=== PATIENT | male | born 1990 | race African-American/Black ===

== ENCOUNTER 2020-08-21 05:43 | Emergency (ER) | payer SELFPAY ==
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
[2020-08-21 05:49] VITALS: BP 102/62; PULSE 63; RESP 16; TEMP 36.3; O2SAT 98
--- NOTE | 2020-08-21 06:19 | ED.GENADULT ---
HPI - General Adult General Chief complaint: Unspecified <Christian Ocampo MD - Last Filed: 08/23/20 19:39> Stated complaint: L jaw pain <Christian Ocampo MD - Last Filed: 08/23/20 19:39> Time Seen by Provider: 08/21/20 06:19 <Christian Ocampo MD - Last Filed: 08/23/20 19:39> History of Present Illness HPI narrative: pain and swelling at the left angle of the mandible since yesterday. Worsening in size and seveirty. No reporting pain as 02/27. He denies any dental pain. He notes that he did have otalgia and presumed ear infection on the left a few days earlier. No fever, chills, sore throat. <Christian Ocampo MD - Last Filed: 08/23/20 19:39> Related Data Allergies/adverse reactions: Allergies Allergy/AdvReac Type Severity Reaction Status Date / Time No Known Allergies Allergy Verified 08/21/20 07:11 <Christian Ocampo MD - Last Filed: 08/23/20 19:39> Review of Systems Review of Systems: All systems reviewed & are unremarkable except as noted in HPI and below <Christian Ocampo MD - Last Filed: 08/23/20 19:39> Constitutional: Constitutional: Denies chills and Denies fever(s) <Christian Ocampo MD - Last Filed: 08/23/20 19:39> Eyes: Eyes: Reports no additional eye complaints <Christian Ocampo MD - Last Filed: 08/23/20 19:39> ENT: Reports as per HPI <Christian Ocampo MD - Last Filed: 08/23/20 19:39> Cardiovascular: Cardiovascular: Reports no additional cardiovascular complaints <Christian Ocampo MD - Last Filed: 08/23/20 19:39> Respiratory: Respiratory: Reports no additional respiratory complaints <Christian Ocampo MD - Last Filed: 08/23/20 19:39> Gastrointestinal: Gastrointestinal: Reports no additional gastrointestinal complaints <Christian Ocampo MD - Last Filed: 08/23/20 19:39> [facility] Social History Social History: Social History (Updated 08/21/20 @ 08:13 by Christian Ocampo MD) Substance use: never <Christian Ocampo MD - Last Filed: 08/23/20 19:39> Exam Const: General: healthy appearing and no acute distress <Christian Ocampo MD - Last Filed: 08/23/20 19:39> HENMT: Other: swelling and tenderness over the left parotid gland. moderate decay of molars on top left. No significnat erythema of gums. <Christian Ocampo MD - Last Filed: 08/23/20 19:39> Eyes: Pupils: Equal, round and reactive pupils present <Christian Ocampo MD - Last Filed: 08/23/20 19:39> Neck: Neck: normal visual inspection <Christian Ocampo MD - Last Filed: 08/23/20 19:39> Lymphatic: lymphadenopathy (left anterior ) <Christian Ocampo MD - Last Filed: 08/23/20 19:39> Chest: Chest palpation & inspection: normal inspection of the chest <Christian Ocampo MD - Last Filed: 08/23/20 19:39> Resp: Effort & Inspection: normal respiratory effort <Christian Ocampo MD - Last Filed: 08/23/20 19:39> Auscultation: clear to auscultation bilaterally <Christian Ocampo MD - Last Filed: 08/23/20 19:39> Cardio: Rate: regular rate <Christian Ocampo MD - Last Filed: 08/23/20 19:39> Rhythm: regular rhythm <Christian Ocampo MD - Last Filed: 08/23/20 19:39> Skin: General skin exam: normal color <Christian Ocampo MD - Last Filed: 08/23/20 19:39> Neuro: General: patient oriented x3, gait normal, moves all extremities, no focal motor deficits and CN's II-XI intact bilaterally <Christian Ocampo MD - Last Filed: 08/23/20 19:39> Cognition (Neuro): normal cognition <Christian Ocampo MD - Last Filed: 08/23/20 19:39> Speech: normal speech <Christian Ocampo MD - Last Filed: 08/23/20 19:39> Course Course Emergency Course: i assumed care of this pt at shift change , i have seen this pt and reexamined him,no definitive abscess, advised him to take antibiotic as prescribed. <Iván Madsen MD - Last Filed: 08/21/20 09:00> Vital Signs Vital signs: Vital Signs Temperature 36.3 C L 08/21/20 05:49 Pulse Rate 63
[2020-08-21] MEDS: MORPHINE SULFATE (*CRX) 2 MG/ML INJ IV PUSH (06:46)
[2020-08-21 07:03] LABS: Basophils Percent Auto 0.6 % (0.2-1.2); Eosinophils Absolute Auto 0.1 K/mm3 (0-0.3); Eosinophils Percent Auto 1.6 % (0-4.4); Hematocrit 44.2 % (42.0-52.0); Hemoglobin 15.6 g/dL (14.0-18.0); Immature Granulocyte Absolute 0.03 K/mm3 (0.00-0.031); Immature Granulocyte Percent A 0.4 % (0-0.5); Lymphocytes Absolute Auto 2.04 K/mm3 (0.9-3.2); Lymphocytes Percent Auto 29.8 % (18.3-44.2); Mean Corpuscular HGB Conc 35.3 g/dl (32-36); Mean Corpuscular Hemoglobin 32.6 pg (26-34); Mean Corpuscular Volume 92.5 fl (80-100); Mean Platelet Volume 10.4 fl (7.4-10.4); Monocytes Absolute Auto 0.9 K/mm3 (0.1-0.6); Monocytes Percent Auto 12.9 % (2.6-8.5); Neutrophils Absolute Auto 3.7 K/mm3 (1.3-6.7); Neutrophils Percent Auto 54.7 % (45.5-73.1); Platelet Count Result 146 k/mm3 (150-375); Red Blood Count 4.78 M/mm3 (4.6-6.20); Red Cell Distribution Width 12.3 % (11.5-14.5); White Blood Count 6.8 K/mm3 (4.5-10.0)
--- NOTE | 2020-08-21 07:10 | PC.NURSE ---
assumed care of patient, allergies and pharmacy information obtained at this time.
[2020-08-21 07:13] LABS: Anion Gap 6 mmol/L (8-16); Blood Urea Nitrogen 10 mg/dL (9-20); Calcium 9.3 mg/dL (8.4-10.2); Carbon Dioxide 32 mmol/L (22-30); Chloride 103 mmol/L (98-107); Estimated CRCL calculation 86 ml/min; Estimated Glomerular Filt Rate > 60; Glucose 103 mg/dL (75-110); Potassium 3.8 mmol/L (3.4-5.0); Sodium 141 mmol/L (137-145)
[2020-08-21] MEDS: AMPICILLIN SULB 3 GM/NS 100 ML 3 GM/100 ML VIAL IVPB (07:23)
[2020-08-21 09:16] VITALS: BP 103/79; PULSE 69; O2SAT 100
== END 2020-08-21 09:17 | disposition home or self-care (01) ==
PROVIDERS: Emergency Medicine; Emergency Provider Family Medicine
DX: K11.21 Acute sialoadenitis (principal)
CPT/HCPCS: 36415; 70487; 80048; 85025; 96365; 96367; 96375; 99284; J0131; J0295; J2270; Q9967

== ENCOUNTER 2020-10-02 00:30 | Emergency (ER) | payer SELFPAY ==
[2020-10-02 00:34] VITALS: BP 102/59; PULSE 70; RESP 19; TEMP 36.9; O2SAT 97
--- NOTE | 2020-10-02 03:04 | ED.GENADULT ---
HPI - General Adult General Chief complaint: Dental/Oral Stated complaint: swollen jaw Time Seen by Provider: 10/02/20 02:43 History of Present Illness HPI narrative: Patient 22-year-old gentleman presents the emergency department chief complaint of swollen left salivary gland. The patient was seen in the emergency department approximately a month ago and treated with Augmentin for sialoadenitis. The patient states that it started swelling up today and he tried to buy some lemon drop candies that were the sugar-free variant and did not have any improvement in the symptoms. Patient states it hurts whenever he opens his mouth reports that there is been no drainage denies fever. Patient states that he also has a rash on the left side of his neck. Patient states the rash is itchy and scaly Related Data Allergies Allergy/AdvReac Type Severity Reaction Status Date / Time No Known Allergies Allergy Verified 08/21/20 07:11 Review of Systems Review of Systems: Narrative: A 10 system review of systems was completed on the patient and is negative except for what is stated in the HPI. Nursing and ancillary documentation was reviewed. [facility] Social History Social History Substance use: never Gender identity (if verbalized by the patient): Male Exam Narrative: Exam Narrative: GENERAL: Well-appearing, well-nourished, and in no acute distress. HEAD: Normocephalic, atraumatic. EYES: PERRLA and EOMI. ENT: Nares clear, no rhinorrhea or epistaxis. Mucous membranes moist. There is tenderness and swelling of the left buccal area. There is no fluctuance there is no appreciable abscess. NECK: Supple. CHEST: Clear to auscultation. No respiratory distress. HEART: Regular rate and rhythm. No murmur heard. Normal peripheral pulses. ABDOMEN: Soft, nontender, nondistended, normal active bowel sounds. EXTREMITIES: Normal range of motion. No edema. SKIN: Warm, dry, there is a dry scaly rash in the left neck area.. NEURO: No focal deficits. Alert and oriented x3. PSYCH: Normal mood and affect. Course Course Emergency Course: Patient has had helical imaging first week of August. Patient has the same symptoms as last time. At this time the patient will be treated empirically as to reduce the radiation exposure it was explained to the patient that if the symptoms do not improve he should return for IV antibiotics and possible helical imaging at that time. Vital Signs Vital signs: Vital Signs Temperature 36.9 C 10/02/20 00:34 Pulse Rate 70 10/02/20 00:34 Respiratory Rate 19 10/02/20 00:34 Blood Pressure 102/59 L 10/02/20 00:34 Pulse Oximetry 97 10/02/20 00:34 Temperature 36.9 C 10/02/20 00:34 Pulse Rate 70 10/02/20 00:34 Respiratory Rate 19 10/02/20 00:34 Blood Pressure 102/59 L 10/02/20 00:34 Pulse Oximetry 97 10/02/20 00:34 Medical Decision Making Vital Signs Vital Signs: Vital Signs Temperature 36.9 C 10/02/20 00:34 Pulse Rate 70 10/02/20 00:34 Respiratory Rate 10/02/20 00:34 Blood Pressure 102/59 L 10/02/20 00:34 Pulse Oximetry 97 10/02/20 00:34 Temperature 36.9 C 10/02/20 00:34 Pulse Rate 70 10/02/20 00:34 Respiratory Rate 10/02/20 00:34 Blood Pressure 102/59 L 10/02/20 00:34 Pulse Oximetry 97 10/02/20 00:34 Discharge Plan Discharge Clinical Impression: Sialoadenitis Contact dermatitis Qualifiers: Contact dermatitis type: unspecified Contact dermatitis trigger: unspecified trigger Qualified Code(s): L25.9 - Unspecified contact dermatitis, unspecified cause Patient Disposition: Home, Self-Care Condition: Stable Instructions: Antibiotic Form, Sialoadenitis (ED), Dermatitis (ED) Prescriptions: New clindamycin HCl 300 mg capsule 300 mg PO Q6H 10 Days Qty: 40 RF: 0 triamcinolone acetonide 0.1 % cream 1 applic topical BID Qty: 30 RF: 0 No Action amoxicillin
[2020-10-02] MEDS: CLINDAMYCIN HCL 150 MG CAP 300 MG PO (03:14)
[2020-10-02 04:15] VITALS: BP 104/60; PULSE 69; RESP 18; O2SAT 99
== END 2020-10-02 04:17 | disposition home or self-care (01) ==
PROVIDERS: Emergency Provider Emergency Medicine
DX: K11.20 Sialoadenitis, unspecified (principal); L25.9 Unspecified contact dermatitis, unspecified cause
CPT/HCPCS: 99283; A9270

== ENCOUNTER 2022-05-02 23:33 | Emergency (ER) | payer SELFPAY ==
[2022-05-02 23:37] VITALS: BP 117/66; PULSE 75; RESP 16; TEMP 36.6; O2SAT 97
[2022-05-03 01:32] LABS: Add Urine Microscopic? YES; Appearance Urine Clear (Clear); Bilirubin Urine Negative (Negative); Blood Urine Negative (Negative); Color Urine Yellow (Yellow); Glucose Urine UA Negative (Negative); Ketones Urine Trace mg/dL (Negative); Leukocyte Esterase Ur Negative LEU/UL (Negative); Nitrate Urine Negative (Negative); Protein Urine Negative (Negative); Specific Grav Ur 1.025 (1.001-1.035); pH Urine 6.5 (5.0-9.0)
[2022-05-03 01:36] LABS: Bacteria Urine Trace /hpf; Mucus Urine Moderate /lpf; RBC Urine 0-2 /hpf (0-2); WBC Urine 0-3 /hpf
--- NOTE | 2022-05-03 02:08 | ED.GENADULT ---
HPI - General Adult General Chief complaint: Urogenital-Male Stated complaint: STD Testing Time Seen by Provider: 05/03/22 01:36 History of Present Illness HPI narrative: This is a 31-year-old male presenting ED for an STD check. He was called by his sexual partner until he needs to go to the ED to be checked for STDs. Patient is currently asymptomatic with no penile discharge dysuria fever chills nausea vomiting diarrhea. Related Data Allergies Allergy/AdvReac Type Severity Reaction Status Date / Time No Known Allergies Allergy Verified 05/02/22 23:39 Review of Systems Review of Systems: CONSTITUTIONAL: Denies night sweats. EYES: No eye pain ENT: Denies rhinorrhea CARDIOVASCULAR: Denies palpitations RESPIRATORY: Denies hemoptysis GASTROINTESTINAL: Denies hematemesis GENITOURINARY: Denies hematuria. SKIN: Denies rash MUSCULOSKELETAL: Denies myalgia. NEUROLOGIC: Denies weakness. PSYCHIATRIC: Denies delusions [facility] Social History Social History (Updated 05/03/22 @ 02:09 by David Freire MD) Social History: Patient denies alcohol use, smokes cigars uses marijuana da Substance use: never Gender identity (if verbalized by the patient): Male Exam Narrative: APPEARANCE: No apparent distress. Head: atraumatic. EYES: EOMI, NOSE: Atraumatic NECK: Trachea midline RESPIRATORY: No increased rate of breathing CARDIOVASCULAR: RRR, ABDOMINAL: Non-distended MUSCULOSKELETAl: No obvious deformities Genitall exam, no ulcerations or genital warts. No penile discharge. No testicular tenderness. NEURO: Alert. Moving 4/4 extremities SKIN:: Warm, dry. Normal color PSYCHIATRIC: Normal affect Course Vital Signs Vital signs: Vital Signs Temperature 97.8 F 05/02/22 23:37 Pulse Rate 75 05/02/22 23:37 Respiratory Rate 16 05/02/22 23:37 Blood Pressure 117/66 05/02/22 23:37 Pulse Oximetry 97 05/02/22 23:37 Oxygen Delivery Room Air 05/02/22 23:37 Temperature 97.8 F 05/02/22 23:37 Pulse Rate 75 05/02/22 23:37 Respiratory Rate 16 05/02/22 23:37 Blood Pressure 117/66 05/02/22 23:37 Pulse Oximetry 97 05/02/22 23:37 Oxygen Delivery Room Air 05/02/22 23:37 Medical Decision Making MDM Narrative Medical decision making narrative: this is a 31-year-old male presenting ED for an STD exposure. Urine has been sent for gonorrhea chlamydia and Trichomonas. Patient would like to be treated empirically. Treatment given. Patient is given primary care follow-up. Patient has been encouraged to use protection. Vital Signs Vital Signs: Vital Signs Temperature 97.8 F 05/02/22 23:37 Pulse Rate 75 05/02/22 23:37 Respiratory Rate 16 05/02/22 23:37 Blood Pressure 117/66 05/02/22 23:37 Pulse Oximetry 97 05/02/22 23:37 Oxygen Delivery Room Air 05/02/22 23:37 Temperature 97.8 F 05/02/22 23:37 Pulse Rate 75 05/02/22 23:37 Respiratory Rate 16 05/02/22 23:37 Blood Pressure 117/66 05/02/22 23:37 Pulse Oximetry 97 05/02/22 23:37 Oxygen Delivery Room Air 05/02/22 23:37 Lab Data Labs: Lab Results 05/03/22 05/03/22 05/03/22 Range/Units 01:27 01:27 01:27 Urine Color Yellow (Yellow) Urine Appearance Clear (Clear) Urine pH 6.5 (5.0-9.0) Ur Specific Babb 1.025 (1.001-1.035) Urine Protein Negative (Negative) mg/dL Urine Glucose (UA) Negative (Negative) mg/dL Urine Ketones Trace (Negative) mg/dL Ur Blood (Man) Negative (Negative) Urine Nitrate Negative (Negative) Urine Bilirubin Negative (Negative) Urine Urobilinogen 1.0 (<2.0) mg/dL Leukocyte Esterase Rfl Negative (Negative) [facility] C.trachomatis RNA (TMA) Pending N.gonorrhoeae RNA (TMA) Pending T. vaginalis Amp RNA Pending Discharge Plan Discharge Clinical Impression: Encounter for assessment of STD exposure Patient Disposition: Home, Self-Care Condition: Stable Instructi
[2022-05-03] MEDS: ONDANSETRON HCL ODT 4 MG TABLET PO (02:18)
[2022-05-03] MEDS: metroNIDAZOLE 250 MG TABLET 2000 MG PO (02:18)
[2022-05-03] MEDS: cefTRIAXone 1 GM VIAL 0.5 GM IM (02:18)
[2022-05-03] MEDS: DOXYCYCLINE HYCLATE 100 MG TABLET PO (02:18)
[2022-05-03 02:27] VITALS: BP 127/68; PULSE 68; RESP 14; O2SAT 99
== END 2022-05-03 02:28 | disposition home or self-care (01) ==
PROVIDERS: Physician Assistant; Emergency Provider Emergency Medicine
DX: Z11.3 Encounter for screening for infections with a predominantly sexual mode of transmission (principal)
CPT/HCPCS: 81001; 87491; 87591; 87661; 96372; 99283; A9270; J0696

== ENCOUNTER 2023-01-30 13:43 | Emergency (ER) | payer OTHER, SELFPAY ==
[2023-01-30 14:04] VITALS: BP 95/60; PULSE 60; RESP 16; TEMP 35.9; O2SAT 99
[2023-01-30 14:06] VITALS: BP 95/60; PULSE 60; RESP 16; TEMP 35.9; O2SAT 99
--- NOTE | 2023-01-30 14:47 | ED.GENADULT ---
HPI - General Adult General Chief complaint: Extremity Injury, Upper Stated complaint: Body Pain Source: patient Mode of arrival: ambulatory Limitations: no limitations History of Present Illness HPI narrative: Patient presents for evaluation of muscle spasms in the hands. He has experience symptoms over last 2 weeks. Symptoms always occur at night while sleeping. 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 He does not take any diuretics. No decrease in urine output. He does not have any current symptoms at the present time. He has no other acute medical concerns. Related Data Allergies Allergy/AdvReac Type Severity Reaction Status Date / Time No Known Allergies Allergy Verified 01/30/23 14:05 Review of Systems Review of Systems: CONSTITUTIONAL: Denies fever, chills, or sweats. EYES: Denies visual changes, redness, or discharge. ENT: Denies rhinorrhea, congestion, sore throat, or otalgia. CARDIOVASCULAR: Denies chest pain, palpitations, or edema. RESPIRATORY: Denies cough or dyspnea. GASTROINTESTINAL: Denies abdominal pain, nausea, vomiting, or diarrhea. GENITOURINARY: Denies dysuria or hematuria. SKIN: Denies rash or itching. MUSCULOSKELETAL: Reports bilateral hand cramping nocturnally. NEUROLOGIC: Denies headache, numbness, dizziness, or weakness. PSYCHIATRIC: Denies anxiety or depression. [facility] Past Medical History Medical History No pertinent past medical history Surgical History Surgical History No pertinent past surgical history Family History Family History Mother Family history non-contributory Social History Social History Social History: Patient denies alcohol use, smokes cigars uses marijuana Smoking status: Current every day smoker Tobacco type: cigars Substance use: current Substance use type: marijuana Gender identity (if verbalized by the patient): Male Spiritual care concerns: No Exam Narrative: GENERAL: Well-appearing, well-nourished, and in no acute distress. HEAD: Normocephalic, atraumatic. EYES: PERRLA and EOMI. ENT: Nares clear, no rhinorrhea or epistaxis. Mucous membranes moist. Oropharynx without tonsillar hypertrophy exudate or other lesions. Bilateral TMs pearly sexton nonbulging NECK: Supple. No adenopathy or masses. No carotid bruits or JVD CHEST: Clear to auscultation. No respiratory distress. No wheezes rales or rhonchi HEART: Regular rate and rhythm. No murmur heard. Normal peripheral pulses. ABDOMEN: Soft, nontender, nondistended, normal active bowel sounds. EXTREMITIES: Normal range of motion. No edema. SKIN: Warm, dry, no rash. NEURO: No focal deficits. Alert and oriented x3. PSYCH: Normal mood and affect. Course Course Emergency Course: This is a 32-year-old male who presented for evaluation of cramping in the hands that occurs nocturnally. I recommended he follow-up with his primary care provider for serum labs. Perhaps he is dehydrated versus hypokalemic. He has no cardiac symptoms. 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 Will discharge home with some Flexeril that he can take at bedtime to prevent muscle cramps. Increase hydration. Avoid caffeine. Go to the emergency department for worsening symptoms. Patient in agreement with plan of care. Level of Care: Express Care Visit Vital Signs Vital signs: Vital Signs Temperature 35.9 C L 01/30/23 14:04 Pulse Rate 60 01/30/23 14:04 Respiratory Rate 16 01/30/23 14:04 Blood Pressure 95/60 L 01/30/23 14:04 Pulse Oximetry 99 01/30/23 14:04 Oxygen Delivery Room Air 01/30/23 14:04 Temperature 35.9 C L 01/30/23 14:06 Pulse Rate 60 01/30/23 14:06 Respiratory Rate
== END 2023-01-30 14:55 | disposition home or self-care (01) ==
PROVIDERS: Emergency Provider Nurse Practitioner
DX: M62.838 Other muscle spasm (principal); F17.290 Nicotine dependence, other tobacco product, uncomplicated
CPT/HCPCS: 99213; G0463

== ENCOUNTER 2023-08-01 08:17 | Emergency (ER) | payer OTHER, SELFPAY ==
[2023-08-01 08:28] VITALS: BP 106/65; PULSE 77; RESP 16; TEMP 36.4; O2SAT 99
--- NOTE | 2023-08-01 08:32 | ED.URI ---
HPI - URI/Sore Throat General Chief Complaint: Upper Respiratory Infection Stated Complaint: body weak,body sore,hot and cold Time Seen by Provider: 08/01/23 08:32 Source: patient Mode of arrival: ambulatory Limitations: no limitations History of Present Illness HPI Narrative: Sherice is a 32-year-old male patient presenting to the clinic today with complaints of weakness, body aches, and feeling feverish and having chills x2 days. He reports he also has some nausea. Related Data Allergies Allergy/AdvReac Type Severity Reaction Status Date / Time No Known Allergies Allergy Verified 08/01/23 08:27 Review of Systems Review of Systems: Pertinent positives per HPI. Patient denies any rash, headache, visual changes, dizziness, cough, shortness of breath, chest pain, palpitations, nausea, vomiting, diarrhea, constipation, abdominal pain, or any urinary issues. PMFSH Past Medical History Medical History No pertinent past medical history Surgical History Surgical History No pertinent past surgical history Family History Family History Mother Family history non-contributory Social History Social History Social History: Patient denies alcohol use, smokes cigars uses marijuana Smoking status: Current every day smoker Tobacco type: cigars Substance use: current Substance use type: marijuana Gender identity (if verbalized by the patient): Male Spiritual care concerns: No Comments At the time of my signature, I reviewed and agree with the nursing past medical, surgical, social, and family history. There is no relevant family history pertinent to the patient complaint. Exam Narrative: General: Well-developed, well nourished, in no apparent distress Head: Normocephalic, atraumatic Eyes: Pupils equally round and reactive to light bilaterally, EOM intact, sclera and conjunctive clear, no discharge, lids normal Ears: TMs intact and congested, ear canals clear, no drainage, grossly hearing normal. Nose: Nares patent, no discharge, no inflammation, no sinus tenderness. Mouth: Oral pharynx red without lesions or masses, good dentition, MMM. Neck: Supple, trachea midline, no enlargement of anterior or posterior cervical nodes, no thyroid masses or goiter palpable. Cardio: Regular rate and rhythm, s1 and s2 normal, no murmur appreciated. Resp: Clear to auscultation bilaterally, no rhonchi, rales, wheezing or rubs Course Course Emergency Course: Portions of this record may have been created with voice recognition software. Level of Care: Express Care Visit Vital Signs Vital signs: Vital Signs Temperature 36.4 C 08/01/23 08:28 Pulse Rate 77 08/01/23 08:28 Respiratory Rate 16 08/01/23 08:28 Blood Pressure 106/65 08/01/23 08:28 Pulse Oximetry 99 08/01/23 08:28 Oxygen Delivery Room Air 08/01/23 08:28 Temperature 36.4 C 08/01/23 08:28 Pulse Rate 77 08/01/23 08:28 Respiratory Rate 16 08/01/23 08:28 Blood Pressure 106/65 08/01/23 08:28 Pulse Oximetry 99 08/01/23 08:28 Oxygen Delivery Room Air 08/01/23 08:28 Vital signs reviewed MDM - URI/Sore Throat MDM Narrative Medical decision making narrative: At the time of visit patient is resting comfortably on the exam table. Patient appears to be nontoxic. Labs: COVID testing was positive. Influenza testing was negative. Plan: Patient has COVID. Will send in prescription for some Zofran. Supportive measures were discussed with the patient and they voiced understanding discharge instructions and agrees to treatment plan. Return precautions reviewed Differential Diagnosis Differential diagnosis: Likely upper respiratory infection, otitis media, sinusitis, viral infection,
== END 2023-08-01 08:57 | disposition home or self-care (01) ==
PROVIDERS: Emergency Provider Nurse Practitioner Family
DX: U07.1 COVID-19 (principal); F17.290 Nicotine dependence, other tobacco product, uncomplicated; F12.90 Cannabis use, unspecified, uncomplicated
CPT/HCPCS: 87426; 87804; 99213; G0463

== ENCOUNTER 2023-08-06 11:17 | Emergency (ER) | payer OTHER, SELFPAY ==
--- NOTE | 2023-08-06 11:23 | ED.URI ---
HPI - URI/Sore Throat General Chief Complaint: Recheck/Abnormal Lab/Rx Stated Complaint: covid test for work/note Time Seen by Provider: 08/06/23 11:56 Source: patient and RN notes reviewed Mode of arrival: ambulatory Limitations: no limitations History of Present Illness HPI Narrative: 32-year-old male presents with concern for returning to work after COVID. Reports today is day 7 since symptoms started. Reports symptoms are resolved wants to go back to work. He denies fever, aches, chills, sweats. Reports he occasionally takes NyQuil at night. MD elicited complaint: other (Follow-up) Related Data Home Medications Medication Instructions Recorded Confirmed No Home Medications 08/06/23 08/06/23 Allergies Allergy/AdvReac Type Severity Reaction Status Date / Time No Known Allergies Allergy Verified 08/06/23 11:32 Review of Systems Review of Systems: CONSTITUTIONAL: Denies malaise, chills, sweats, or fever. EYES: Denies visual changes, redness, or discharge. ENT: Denies rhinorrhea, congestion, sinus pain, otalgia and sore throat. CARDIOVASCULAR: Denies chest pain, palpitations, or edema. RESPIRATORY: Denies cough. Denies dyspnea. GASTROINTESTINAL: Denies abdominal pain, nausea, vomiting, diarrhea SKIN: Denies rash or itching. MUSCULOSKELETAL: Denies myalgia. NEUROLOGIC: Denies headache. All systems reviewed & are unremarkable except as noted in HPI and below PMFSH Past Medical History Medical History No pertinent past medical history Surgical History Surgical History No pertinent past surgical history Family History Family History Mother Family history non-contributory Social History Social History Social History: Patient denies alcohol use, smokes cigars uses marijuana Smoking status: Current every day smoker Tobacco type: cigars Substance use: current Substance use type: marijuana Gender identity (if verbalized by the patient): Male Spiritual care concerns: No Comments At time of signature, agree with nursing past medical, surgical, social and family history. There is no relevant family history pertinent to the presenting complaint Exam Narrative: GENERAL: Well-appearing, well-nourished, and in no acute distress. HEAD: Normocephalic EYES: PERRLA, conjunctivae clear ENT: Nares clear, turbinates edematous and erythematous, clear discharge. Mucous membranes moist. TM pearly sexton with sharp light reflex bilaterally; no tragal tenderness. Oropharynx not erythematous without lesions. Tonsils not enlarged and without exudate, no drooling, no hoarseness, no trismus, uvula midline. NECK: Supple. No lymphadenopathy CHEST: Clear to auscultation, breath sounds equal. No wheezing, rhonchi, rales, or stridor. No respiratory distress, speaks in full sentences. HEART: Regular rate and rhythm. No murmur heard. SKIN: Warm, dry, no rash. NEURO: Alert and oriented x3. PSYCH: Normal mood and affect Course Course Emergency Course: Patient is aware of diagnosis, understands and agrees to treatment plan. Anticipatory guidance given. Patient agrees to follow-up as directed and is aware of reasons to seek care at the emergency department. Portions of this record may have been created with voice recognition software Level of Care: Express Care Visit Vital Signs Vital signs: Reviewed. MDM - URI/Sore Throat MDM Narrative Medical decision making narrative: Differential diagnosis considered: Dorantes virus, strep pharyngitis, allergic rhinitis, upper respiratory tract infection, sinusitis, rhinosinusitis, nasopharyngitis. viral pharyngitis, otitis media, otitis externa, pneumonia, bronchitis, viral cough syndrome, viral syndrome, and influenza. Exam findings paige
== END 2023-08-06 12:06 | disposition home or self-care (01) ==
PROVIDERS: Emergency Provider Nurse Practitioner
DX: Z02.79 Encounter for issue of other medical certificate (principal); F17.290 Nicotine dependence, other tobacco product, uncomplicated; F12.90 Cannabis use, unspecified, uncomplicated
CPT/HCPCS: 99211; G0463

== ENCOUNTER 2024-02-10 18:10 | Emergency (ER) | payer OTHER, SELFPAY ==
[2024-02-10 18:24] VITALS: BP 116/67; PULSE 58; RESP 16; TEMP 36.6; O2SAT 98
--- NOTE | 2024-02-10 19:13 | ED.GENADULT ---
HPI - General Adult General Chief complaint: Skin/Abscess/Foreign Body Stated complaint: Chin Irritation Source: patient Mode of arrival: ambulatory Limitations: no limitations History of Present Illness HPI narrative: Patient presents for evaluation of right-sided facial swelling and pain. He indicates he noticed a pimple to the right side of his chin two days ago. He attempted to squeeze the lesion. Today he noted worsening swelling in that area. Symptoms are localized to the right side of his chin. He denies any difficulty breathing, swallowing, swelling that crosses the midline of the neck, fevers, chills, nausea, vomiting. He is not diabetic. He does smoke marijuana and black and milds. Related Data Allergies Allergy/AdvReac Type Severity Reaction Status Date / Time No Known Allergies Allergy Verified 02/10/24 18:23 Review of Systems Review of Systems: CONSTITUTIONAL: Denies fever, chills, or sweats. EYES: Denies visual changes, redness, or discharge. ENT: Reports facial pain in the area of the right side of his chin. Denies rhinorrhea, congestion, sore throat, or otalgia. CARDIOVASCULAR: Denies chest pain, palpitations, or edema. RESPIRATORY: Denies cough or dyspnea. GASTROINTESTINAL: Denies abdominal pain, nausea, vomiting, or diarrhea. GENITOURINARY: Denies dysuria or hematuria. SKIN: Reports swelling and redness to the right side of his chin. MUSCULOSKELETAL: Denies back pain, joint pain, or myalgia. NEUROLOGIC: Denies headache, numbness, dizziness, or weakness. PSYCHIATRIC: Denies anxiety or depression. [facility] Past Medical History Medical History No pertinent past medical history Surgical History Surgical History No pertinent past surgical history Family History Family History Mother Family history non-contributory Social History Social History Smoking status: Current every day smoker Tobacco type: cigars Substance use: current Substance use type: marijuana Gender identity (if verbalized by the patient): Male Spiritual care concerns: No Exam Narrative: GENERAL: Well-appearing, well-nourished, and in no acute distress. HEAD: Normocephalic, atraumatic. EYES: PERRLA and EOMI. ENT: Nares clear, no rhinorrhea or epistaxis. Mucous membranes moist. Oropharynx without tonsillar hypertrophy exudate or other lesions. Bilateral TMs pearly sexton nonbulging NECK: Supple. No adenopathy or masses. No carotid bruits or JVD CHEST: Clear to auscultation. No respiratory distress. No wheezes rales or rhonchi HEART: Regular rate and rhythm. No murmur heard. Normal peripheral pulses. ABDOMEN: Soft, nontender, nondistended, normal active bowel sounds. EXTREMITIES: Normal range of motion. No edema. SKIN: There is redness and warmth to the right side of his chin with associated soft tissue swelling. Symptoms do not involve the anterior aspect of his neck and do not cross the midline. Warm, dry, no rash. NEURO: No focal deficits. Alert and oriented x3. PSYCH: Normal mood and affect. Course Course Emergency Course: This is a 33-year-old male who presented for evaluation of right-sided facial swelling and pain. He has evidence of cellulitis. There is no evidence of Bridger's angina. I provided him with thorough Education regarding signs and symptoms consistent with advised that he must go to the emergency department in the event that he develops any worsening symptoms were symptoms consistent with Bridger's. He was given injection of Rocephin and dexamethasone. He will be discharged with Bactrim, Keflex, prednisone and [place]. He does have supervision at home. I advised that it is imperative that he not smoke. He will follow up with primary care and
[2024-02-10] MEDS: dexAMETHasone SOD PHOS INJ 10 MG/ML 1 ML VIAL IM (19:17)
[2024-02-10] MEDS: cefTRIAXone 1 GM, LIDOCAINE HCL 1% LOCAL INJ 2.1 ML IM (19:18)
== END 2024-02-10 19:42 | disposition home or self-care (01) ==
PROVIDERS: Emergency Provider Nurse Practitioner
DX: R22.0 Localized swelling, mass and lump, head (principal); L03.211 Cellulitis of face; F17.290 Nicotine dependence, other tobacco product, uncomplicated; F12.90 Cannabis use, unspecified, uncomplicated
CPT/HCPCS: 96372; 99214; G0463; J0696; J1100

== ENCOUNTER 2024-02-28 12:55 | Emergency (ER) | payer OTHER, SELFPAY ==
[2024-02-28 12:55] VITALS: BP 133/70; PULSE 80; RESP 16; TEMP 36.3; O2SAT 100
[2024-02-28] MEDS: TETANUS,DIPHTHERIA,AC PERTUSSIS ADULT (0.5 ML) BOOSTRIX IM (13:31)
--- NOTE | 2024-02-28 13:43 | ED.WOUNDLAC ---
HPI - Wound/Laceration General Chief Complaint: Wound/Laceration Stated Complaint: hand lac Time Seen by Provider: 02/28/24 13:16 Source: patient Mode of arrival: ambulatory Limitations: no limitations History of Present Illness HPI narrative: This is a 33-year-old male that presents to the emergency department for laceration of the left 2nd finger. Reports he accidentally cut himself trying to open a sauce bottle. Reports bleeding and pain to the area. He is not up-to-date on tetanus vaccination. Denies decreased range of motion or numbness Related Data Allergies Allergy/AdvReac Type Severity Reaction Status Date / Time No Known Allergies Allergy Verified 02/28/24 12:57 Review of Systems Review of Systems: CONSTITUTIONAL: Denies fever SKIN: Reports laceration NEUROLOGIC: Denies numbness All systems reviewed & are unremarkable except as noted in HPI and below PMFSH Past Medical History Medical History No pertinent past medical history Surgical History Surgical History No pertinent past surgical history Family History Family History Mother Family history non-contributory Social History Social History Smoking status: Current every day smoker Tobacco type: cigars Substance use: current Substance use type: marijuana Gender identity (if verbalized by the patient): Male Spiritual care concerns: No Exam Narrative: GENERAL: Well-appearing, well-nourished, and in no acute distress. HEAD: Normocephalic, atraumatic. EYES: EOMI. EXTREMITIES: Normal range of motion. No edema. 1.5cm linear laceration into subcutaneous tissue to the left 2nd finger palmar surface proximal phalanx SKIN: Warm, dry, no rash. NEURO: No focal deficits. Alert and oriented x3. PSYCH: Normal mood and affect Course Course Emergency Course: Patient educated on further wound care Vital Signs Vital signs: Vital Signs Temperature 97.3 F L 02/28/24 12:55 Pulse Rate 80 02/28/24 12:55 Respiratory Rate 16 02/28/24 12:55 Blood Pressure 133/70 02/28/24 12:55 Pulse Oximetry 100 02/28/24 12:55 Temperature 97.3 F L 02/28/24 12:55 Pulse Rate 80 02/28/24 12:55 Respiratory Rate 16 02/28/24 12:55 Blood Pressure 133/70 02/28/24 12:55 Pulse Oximetry 100 02/28/24 12:55 Procedures Laceration Laceration 1: Date: 02/28/24 Time: 13:47 Site: hand Side (If applicable): left Size (cm): 1.5 Description: linear Depth: simple, single layer Local Anesthetic: lidocaine 1% and with epi Amount of anesthesia used (mL): 1 Pre-repair: wound explored and irrigated ====== Skin Level ====== Skin layer closed with: nylon Size (cm): 4-0 Number of sutures: 2 Technique: simple, interrupted ====== Subcutaneous Layer ====== ====== Muscle Layer ====== ====== Tendon Layer ====== MDM - Wound/Laceration MDM Narrative Medical decision making narrative: Patient presents to the emergency department for laceration to the left 2nd finger. Patient is neurovascularly intact. Patient's wound was irrigated and closed with sutures. He was updated on tetanus. Educated on further wound care. He is to follow up with primary provider. He was given warnings to return to the ER Differential Diagnosis Differential diagnosis: Likely laceration, abrasion and avulsion of skin Critical Care Time Critical Care Time Critical Care Time: No Discharge Plan Discharge Clinical Impression: Laceration Patient Disposition: Home, Self-Care Condition: Stable Instructions: Care For Your Stitches (ED), Laceration (ED) Additional Instructions: Return to the emergency
== END 2024-02-28 14:05 | disposition home or self-care (01) ==
PROVIDERS: Emergency Provider Physician Assistant
DX: S61.211A Laceration without foreign body of left index finger without damage to nail, initial encounter (principal); Z23 Encounter for immunization; F17.290 Nicotine dependence, other tobacco product, uncomplicated; W25.XXXA Contact with sharp glass, initial encounter
CPT/HCPCS: 12001; 90471; 90715; 99282